=== PATIENT | female | born 1955 | race Caucasian/White ===

== ENCOUNTER → 2019-02-23 | Outpatient (CLI) | payer MEDICARE, BC ==
--- NOTE | 2019-02-23 09:44 | US ---
EXAMINATION TYPE: US venous doppler duplex LE LT DATE OF EXAM: 02/23/2019 9:36 AM COMPARISON: US 2013. CLINICAL HISTORY: R60.0 edema of lower extremity. Left leg swelling/ no known prior DVT/ not on blood thinners SIDE PERFORMED: Left TECHNIQUE: The lower extremity deep venous system is examined utilizing real time linear array sonog carlotta with graded compression, doppler sonography and color-flow sonography. VESSELS IMAGED: External Iliac Vein (EIV) Common Femoral Vein Deep Femoral Vein Greater Saphenous Vein * Femoral Vein Popliteal Vein Small Saphenous Vein * Proximal Calf Veins (* superficial vessels) Left Leg: Negative for DVT Results called to Evelia at Dr's office at time of exam Grayscale, color doppler, spectral doppler imaging performed of the deep veins of the left lower extr emity. There is normal flow, compressibility, vascular waveforms. IMPRESSION: No ultrasound evidence for acute DVT in the left lower extremity.
== END | disposition home or self-care (01) ==
LOC: RADUSWWP 09:15
PROVIDERS: ATTEND Family Medicine
DX: R60.0 Localized edema (principal)

== ENCOUNTER 2021-05-30 15:29 | Inpatient (IN) | payer BC, MEDICARE ==
[2021-05-30] MEDS ORDERED: ACETAMINOPHEN TAB 325 MG TAB PO PRN (17:24)
[2021-05-30 17:48] LABS: Basophils % (A) 0 %; Eosinophils % (A) 0 %; HCT 38.1 % (34.0-46.0); Lymphocytes # (A) 1.1 k/uL (1.0-4.8); Lymphocytes % (A) 11 %; MCH 30.6 pg (25.0-35.0); MCHC 34.2 g/dL (31.0-37.0); MCV 89.6 fL (80.0-100.0); Mean Platelet Volume 7.6; Monocytes # (A) 0.4 k/uL (0-1.0); Monocytes % (A) 4 %; Neutrophils # (A) 7.7 k/uL (1.3-7.7); Neutrophils % (A) 83 %; Platelet Count 209 k/uL (150-450); RBC 4.25 m/uL (3.80-5.40); RDW 12.5 % (11.5-15.5); WBC 9.3 k/uL (3.8-10.6)
[2021-05-30 17:59] LABS: ALT 45 U/L (4-34); AST 51 U/L (14-36); African American GFR (CKD) >90 (>60 ml/min/1.73 sqM); Albumin 3.2 g/dL (3.5-5.0); Alkaline Phosphatase 65 U/L (38-126); Anion Gap 10 mmol/L; Blood Urea Nitrogen 25 mg/dL (7-17); Calcium 8.6 mg/dL (8.4-10.2); Carbon Dioxide 22 mmol/L (22-30); Chloride 100 mmol/L (98-107); Glucose 176 mg/dL (74-99); LDH 657 U/L (313-618); Magnesium 2.2 mg/dL (1.6-2.3); Non-African American GFR(CKD) 80 (>60 ml/min/1.73 sqM); Potassium 3.6 mmol/L (3.5-5.1); Sodium 132 mmol/L (137-145); Total Bilirubin 0.3 mg/dL (0.2-1.3); Total Protein 6.3 g/dL (6.3-8.2)
[2021-05-30 18:13] LABS: C Reactive Protein 22.5 mg/dL (<1.0); INR 0.9 (<1.2); Partial Thromboplastin Time 27.1 sec (22.0-30.0); Prothrombin Time 10.1 sec (9.0-12.0)
--- NOTE | 2021-05-30 19:11 | XR ---
EXAMINATION TYPE: XR chest 1V portable DATE OF EXAM: 05/30/2021 COMPARISON: NONE HISTORY: Short of breath TECHNIQUE: Single view FINDINGS: There is pulmonary interstitial and mild airspace edema. Heart is within normal limits of s ize. There is no definite pleural effusion. Bony thorax is intact. IMPRESSION: Pulmonary patchy interstitial and airspace pneumonia. Heart failure not excluded.
--- NOTE | 2021-05-30 19:18 | ED ---
General Adult HPI - General Chief complaint: Recheck/Abnormal Lab/Rx Stated complaint: covid+/wants infusion Time Seen by Provider: 05/30/21 16:57 Source: patient, RN notes reviewed, old records reviewed Mode of arrival: ambulatory Limitations: no limitations - History of Present Illness Initial comments: I evaluated the patient when she was placed in a room.Patient is a 66-year-old female with past medical history remarkable for MS, legally blind, hypertension who presents to the emergency Department Covid-positive with shortness of breath. Patient was found to be 80% on room air in the room. She states she has had symptoms since the which is 8 days ago. She has progressively gotten worse. She does endorse a cough. She was given the first dose of vaccine but did not complete it as she had an anaphylactic reaction. She denies any chest pain, lower extremity swelling, history of blood clots. Denies any abdominal pain but does endorse some reduced appetite. She is no other acute complaints at this time. She was surprised when she found out that her oxygen level is low I discussed with her admission. She was in agreement. She is no other acute complaints at this time. - Related Data Home Medications Medication Instructions Recorded Confirmed Latanoprost Ophth [Xalatan 0.005%] 1 drops BOTH EYES HS 01/06/16 05/30/21 Losartan Potassium [Cozaar] 50 mg PO BID 01/06/16 05/30/21 amLODIPine [Norvasc] 5 mg PO BID 01/06/16 05/30/21 Aspirin EC [Ecotrin Low Dose] 81 mg PO DAILY 05/30/21 05/30/21 Cholecalciferol [Vitamin D3 (25 75 mcg PO DAILY 05/30/21 05/30/21 Mcg = 1000 Iu)] Dalfampridine [Dalfampridine ER] 10 mg PO Q12H 05/30/21 05/30/21 Dexamethasone 6 mg PO DAILY 05/30/21 05/30/21 Loratadine 10 mg PO DAILY 05/30/21 05/30/21 Loratadine/Pseudoephedrine 1 tab PO DAILY PRN 05/30/21 05/30/21 [Loratadine-D 24Hr Tablet] Meclizine [Antivert] 12.5 mg PO AC-TID PRN 05/30/21 05/30/21 Mometasone Furoate [Elocon] 1 applic TOPICAL BID 05/30/21 05/30/21 Nystatin 100,000Unit/gm Cream 1 applic TOPICAL BID 05/30/21 05/30/21 [Mycostatin Cream] [place]-3 Fatty Acids [[place]-3] 1,000 mg PO DAILY 05/30/21 05/30/21 Potassium Iodide 32.5mg 32.5 mg PO DAILY 05/30/21 05/30/21 Timolol 0.5% Ophth Soln [Timoptic 1 drop BOTH EYES BID 05/30/21 05/30/21 0.5% Ophth Soln] Triamterene-Hctz 37.5-25Mg 1 cap PO DAILY 05/30/21 05/30/21 [Dyazide 37.5-25 Capsule] Vitamin B Complex 1 cap PO DAILY 05/30/21 05/30/21 modafiniL [Provigil] 200 mg PO DAILY 05/30/21 05/30/21 Allergies Allergy/AdvReac Type Severity Reaction Status Date / Time penicillinase Allergy Rash/Hives Verified 05/30/21 18:15 Penicillins Allergy Rash/Hives Verified 05/30/21 18:15 Review of Systems ROS Statement: Those systems with pertinent positive or pertinent negative responses have been documented in the HPI. Review of Systems: CONST: Denies fever EYES: Denies blurry vision ENT: Endorses rhinorrhea C/V: Denies Chest pain RESP: Endorses shortness of breath GI: Denies abdominal pain : Denies dysuria SKIN: Denies rash. MSK: Denies joint pain. NEURO: Denies headache ROS Other: All systems not noted in ROS Statement are negative. Past Medical History Past Medical History: Hypertension, Sleep Apnea/CPAP/BIPAP Additional Past Medical History / Comment(s): ms, apnea, leagally blind, glaucom a Past Surgical History: Hysterectomy Past Psychological History: No Psychological Hx Reported General Exam - General Exam Comments Initial Comments: General: Appears in mild respiratory distress. HEAD: Normal with no signs of head trauma. EYES: Legally blind, can see shapes which is her baseline. ENT: Hearing grossly intact, normal oropharynx. RESPIRATORY: Coarse breath sounds bilaterally. Hypoxic on room air. Mildly increased work of breathing. C/V: Tachycardia with a regular rhythm. S1 and S2 auscultated. Peripheral pulses 2+ and intact throughout. No peripheral edema. ABD: Abd is soft, nontender, nondistended EXT: Normal range of motion, no obvious deformity SKIN: No rashes or lesions observed on exposed skin. NEURO: Alert and oriented 4. No focal deficits. Limitations: no limitations Course Vital Signs 05/30/21 05/30/21 16:50 17:48 Temperature 99 F Pulse Rate 103 H 94 Respiratory 20 20 Rate Blood Pressure 111/71 124/73 O2 Sat by Pulse 89 L 90 L Oximetry Medical Decision Making - Medical Decision Making Based on the patient's presentation and physical exam, she is experiencing hypoxic respiratory failure secondary to COVID-19 pneumonia. I discussed with her that she requires admission she was in agreement this plan. She will be given Decadron, albuterol, based on oxygen. Saturations improved following 4 L oxygen administration. Covid labs will be obtained including cardiac workup. She was in agreement with this plan. EKG shows no signs of acute ischemia. Lavatory studies were remarkable for an elevated d-dimer of 1.55. She is a mild hyponatremia of 132. Lactic acid is very mildly elevated 2.3 which may be secondary to mild dehydration. Patient is tolerant by mouth intake at this time and she'll be given fluid hydration. LDH is mildly elevated to 657, troponin is negative, and CRP is elevated to 22. On reevaluation, patient is feeling improved. Respiratory distress is reduced. Patient is saturating 90% on 4 L nasal cannula. I discussed with her the results of laboratory studies. I would like to obtain a CT PE throughout the possibility of pulmonary embolism with her elevated d-dimer. She was in agreement this plan. CT PE showed no signs of a pulmonary embolus and. There is a substernal goiter present. I informed the patient results of her imaging. At this time she'll be admitted to the hospital. Pulmonology and infectious disease were consulted to evaluate the patient in the morning. I spoke with the admitting team under Dr. Dunbar who accepted the patient. Patient was admitted to a telemetry bed in serious condition. - Lab Data Result diagrams: 05/30/21 17:33 05/30/21 17:33 Lab Results 05/30/21 05/30/21 05/30/21 Range/Units 17:33 17:33 17:33 WBC 9.3 (3.8-10.6) k/uL RBC 4.25 (3.80-5.40) m/uL Hgb 13.0 (11.4-16.0) gm/dL Hct 38.1 (34.0-46.0) % MCV 89.6 (80.0-100.0) fL MCH 30.6 (25.0-35.0) pg MCHC 34.2 (31.0-37.0) g/dL RDW 12.5 (11.5-15.5) % Plt Count 209 (150-450) k/uL MPV 7.6 Neutrophils % 83 % Lymphocytes % 11 % Monocytes % 4 % Eosinophils % 0 % Basophils % 0 % Neutrophils # 7.7 (1.3-7.7) k/uL Lymphocytes # 1.1 (1.0-4.8) k/uL Monocytes # 0.4 (0-1.0) k/uL Eosinophils # 0.0 (0-0.7) k/uL Basophils # 0.0 (0-0.2) k/uL PT 10.1 (9.0-12.0) sec INR 0.9 (<1.2) APTT 27.1 (22.0-30.0) sec D-Dimer 1.55 H (<0.60) mg/L FEU Sodium 132 L (137-145) mmol/L Potassium 3.6 (3.5-5.1) mmol/L Chloride 100 (98-107) mmol/L Carbon Dioxide 22 (22-30) mmol/L Anion Gap 10 mmol/L BUN 25 H (7-17) mg/dL Creatinine 0.79 (0.52-1.04) mg/dL Est GFR (CKD-EPI)AfAm >90 (>60 ml/min/1.73 sqM) Est GFR (CKD-EPI)NonAf 80 (>60 ml/min/1.73 sqM) Glucose 176 H (74-99) mg/dL Lactic Ac Sepsis Rflx Plasma Lactic Acid Bryon (0.7-2.0) mmol/L Calcium 8.6 (8.4-10.2) mg/dL Magnesium 2.2 (1.6-2.3) mg/dL Total Bilirubin 0.3 (0.2-1.3) mg/dL AST 51 H (14-36) U/L ALT 45 H (4-34) U/L Alkaline Phosphatase 65 (38-126) U/L Lactate Dehydrogenase 657 H (313-618) U/L Troponin I (0.000-0.034) ng/mL C-Reactive Protein 22.5 H (<1.0) mg/dL Total Protein 6.3 (6.3-8.2) g/dL Albumin 3.2 L (3.5-5.0) g/dL Coronavirus (PCR) (Not Detectd) 05/30/21 05/30/21 05/30/21 Range/Units 17:33 17:33 17:36 WBC (3.8-10.6) k/uL RBC (3.80-5.40) m/uL Hgb (11.4-16.0) gm/dL Hct (34.0-46.0) % MCV (80.0-100.0) fL MCH (25.0-35.0) pg MCHC (31.0-37.0) g/dL RDW (11.5-15.5) % Plt Count (150-450) k/uL MPV Neutrophils % % Lymphocytes % % Monocytes % % Eosinophils % % Basophils % % Neutrophils # (1.3-7.7) k/uL Lymphocytes # (1.0-4.8) k/uL Monocytes # (0-1.0) k/uL Eosinophils # (0-0.7) k/uL Basophils # (0-0.2) k/uL PT (9.0-12.0) sec INR (<1.2) APTT (22.0-30.0) sec D-Dimer (<0.60) mg/L FEU Sodium (137-145) mmol/L Potassium (3.5-5.1) mmol/L Chloride (98-107) mmol/L Carbon Dioxide (22-30) mmol/L Anion Gap mmol/L BUN (7-17) mg/dL Creatinine (0.52-1.04) mg/dL Est GFR (CKD-EPI)AfAm (>60 ml/min/1.73 sqM) Est GFR (CKD-EPI)NonAf (>60 ml/min/1.73 sqM) Glucose (74-99) mg/dL Lactic Ac Sepsis Rflx Plasma Lactic Acid Bryon 2.3 H* (0.7-2.0) mmol/L Calcium (8.4-10.2) mg/dL Magnesium (1.6-2.3) mg/dL Total Bilirubin (0.2-1.3) mg/dL AST (14-36) U/L ALT (4-34) U/L Alkaline Phosphatase (38-126) U/L Lactate Dehydrogenase (313-618) U/L Troponin I <0.012 (0.000-0.034) ng/mL C-Reactive Protein (<1.0) mg/dL Total Protein (6.3-8.2) g/dL Albumin (3.5-5.0) g/dL Coronavirus (PCR) Detected A (Not Detectd) 05/30/21 Range/Units 18:00 WBC (3.8-10.6) k/uL RBC (3.80-5.40) m/uL Hgb (11.4-16.0) gm/dL Hct (34.0-46.0) % MCV (80.0-100.0) fL MCH (25.0-35.0) pg MCHC (31.0-37.0) g/dL RDW (11.5-15.5) % Plt Count (150-450) k/uL MPV Neutrophils % % Lymphocytes % % Monocytes % % Eosinophils % % Basophils % % Neutrophils # (1.3-7.7) k/uL Lymphocytes # (1.0-4.8) k/uL Monocytes # (0-1.0) k/uL Eosinophils # (0-0.7) k/uL Basophils # (0-0.2) k/uL PT (9.0-12.0) sec INR (<1.2) APTT (22.0-30.0) sec D-Dimer (<0.60) mg/L FEU Sodium (137-145) mmol/L Potassium (3.5-5.1) mmol/L Chloride (98-107) mmol/L Carbon Dioxide (22-30) mmol/L Anion Gap mmol/L BUN (7-17) mg/dL Creatinine (0.52-1.04) mg/dL Est GFR (CKD-EPI)AfAm (>60 ml/min/1.73 sqM) Est GFR (CKD-EPI)NonAf (>60 ml/min/1.73 sqM) Glucose (74-99) mg/dL Lactic Ac Sepsis Rflx Y Plasma Lactic Acid Bryon (0.7-2.0) mmol/L Calcium (8.4-10.2) mg/dL Magnesium (1.6-2.3) mg/dL Total Bilirubin (0.2-1.3) mg/dL AST (14-36) U/L ALT (4-34) U/L Alkaline Phosphatase (38-126) U/L Lactate Dehydrogenase (313-618) U/L Troponin I (0.000-0.034) ng/mL C-Reactive Protein (<1.0) mg/dL Total Protein (6.3-8.2) g/dL Albumin (3.5-5.0) g/dL Coronavirus (PCR) (Not Detectd) - EKG Data -: EKG Interpreted by Me EKG Comments: 12-lead Electrocardiogram Interpretation Note EKG was reviewed and interpreted by myself. 12-lead ECG performed at 1803 is interpreted by me as revealing normal sinus rhythm at a rate of 88 beats per minute. [place] is normal. PA intervals 198 ms, QRS duration is 84 ms, QTc is 438 ms.. There were no ST or T wave abnormalities to suggest myocardial ischemia or injury. R wave progression across the precordium was satisfactory. By my interpretation this EKG is non-diagnostic for acute ischemia. Disposition Clinical Impression: Acute respiratory failure with hypoxia, Pneumonia due to COVID-19 virus Disposition: ADMITTED IP TO THIS HOSP Condition: Serious
--- NOTE | 2021-05-30 20:37 | CT ---
EXAMINATION TYPE: CT chest angio for PE DATE OF EXAM: 05/30/2021 COMPARISON: None HISTORY: Elevated d-dimer, covid. CT DLP: 396.8 mGycm Automated exposure control for dose reduction was used. CONTRAST: Performed with IV Contrast, patient injected with 100 mL of Isovue 370. There are 3-D post processed images. There is patchy bilateral interstitial and airspace infiltrates in the lung perez bilaterally. There is enlarged thyroid gland with extension into the retrosternal region. Thoracic aorta is intact. The re is no aneurysm or dissection. There is no mediastinal adenopathy. There are no hilar masses. There is no evidence of filling defect in the pulmonary arteries. There is some mild pleural thickening at the posterior lung bases. Sternum is intact. The thoracic spine is intact. There is no compression fracture. IMPRESSION: No evidence of pulmonary embolism. Moderate patchy bilateral pneumonia. Large retrosternal goiter.
[2021-05-30] MEDS ORDERED: NALOXONE 0.4 MG/ML 1 ML VIAL IV PRN (20:57)
[2021-05-30] MEDS: DEXAMETHASONE SOD PHOSPHATE 10 MG/ML 1 ML VIAL IVP SCH (23:54)
[2021-05-30] MEDS: ENOXAPARIN 40 MG/0.4 ML SYRINGE SQ SCH (23:57)
[2021-05-31] MEDS: ALBUTEROL HFA INHALER INHALATION PRN ×2 (07:37→11:57)
[2021-05-31] MEDS: ENOXAPARIN 40 MG/0.4 ML SYRINGE SQ SCH (10:08)
[2021-05-31] MEDS: DEXAMETHASONE SOD PHOSPHATE 10 MG/ML 1 ML VIAL IVP SCH (10:29)
--- NOTE | 2021-05-31 11:54 | P.CNPUL ---
History of Present Illness Consult date: 05/31/21 Requesting physician: Yanique Dunbar Reason for consult: dyspnea, abnormal CXR/CT Chief complaint: Shortness of breath, cough, congestion History of present illness: This is a pleasant 66-year-old female patient who follows with Dr. Vazquez as her primary care provider. She has a history of hypertension, obstructive sleep apnea utilizing CPAP in the outpatient setting, legally blind, multiple s clerosis, obesity. She presented to the emergency room yesterday with complaints of increasing shortness of breath cough and congestion. Her O2 saturation was 80% on room air. Her symptoms started 8 days prior to her arrival. She did receive a Pfizer vaccine back in December but had ALLERGIC reactio n and did not receive a second one. Her is also positive but still at home still. X-ray reveals bilateral patchy airspace disease. CT angiogram ruled out pulmonary embolism. There is moderate patchy bilateral pneumonia. Large retrosternal goiter. Count 9.3. Hemoglobin 13.0. D-dimer 1.55. Sodium 132. Potassium 3.6. Creatinine 0.79. Glucose 176. Ferritin 778. AST 51. ALT 45. LDH 657. C-reactive protein 22.5. Pro-calcitonin 0.09. Coronary virus by PCR positive. He is seen today in consultation in the emergency room. She is currently resting fairly comfortably in bed. She did utilize her home CPAP through the night. She's been on 5 L nasal cannula to maintain O2 sa turation in the low 90s. His been afebrile. Hemodynamically stable. Been initiated on Decadron, Lovenox, vitamin supplements. Outside the window for Remdesivir. Review of Systems REVIEW OF SYSTEMS: CONSTITUTIONAL: Denies any recent significant weight loss or weight gain. EYES: Denies change in vision. EARS, NOSE, MOUTH, THROAT: Denies headaches, denies sore throat. CARDIOVASCULAR: Denies chest pain, palpitations or syncopal episodes. RESPIRATORY: Positive for shortness of breath, cough, congestion no hemoptysis. GASTROINTESTINAL: Denies change in appetite, denies abdominal pain GENITOURINARY: Denies hematuria, denies infections. MUSKULOSKELETAL: Denies pain, denies swelling. INTEGUMENTARY: Denies rash, denies eczema. NEUROLOGICAL: Denies recent memory loss, no recent seizure activity. PSYCHIATRIC: Denies anxiety, denies depression. HEMATOLOGIC/LYMPHATIC: Denies anemia, denies enlarged lymph nodes. Past Medical History Past Medical History: Hypertension, Sleep Apnea/CPAP/BIPAP Additional Past Medical History / Comment(s): ms, apnea, leagally blind, glaucoma History of Any Multi-Drug Resistant Organisms: None Reported Past Surgical History: Hysterectomy Additional Past Surgical History / Comment(s): left tibia surgery, bilateral wrist surgery Past Psychological History: No Psychological Hx Reported Smoking Status: Never smoker Medications and Allergies Home Medications Medication Instructions Recorded Confirmed Type Latanoprost Ophth [Xalatan 0.005%] 1 drops BOTH EYES HS 01/06/16 05/30/21 History Losartan Potassium [Cozaar] 50 mg PO BID 01/06/16 05/30/21 History amLODIPine [Norvasc] 5 mg PO BID 01/06/16 05/30/21 History Aspirin EC [Ecotrin Low Dose] 81 mg PO DAILY 05/30/21 05/30/21 History Cholecalciferol [Vitamin D3 (25 75 mcg PO DAILY 05/30/21 05/30/21 History Mcg = 1000 Iu)] Dalfampridine [Dalfampridine ER] 10 mg PO Q12H 05/30/21 05/30/21 History Dexamethasone 6 mg PO DAILY 05/30/21 05/30/21 History Loratadine 10 mg PO DAILY 05/30/21 05/30/21 History Loratadine/Pseudoephedrine 1 tab PO DAILY PRN 05/30/21 05/30/21 History [Loratadine-D 24Hr Tablet] Meclizine [Antivert] 12.5 mg PO AC-TID PRN 05/30/21 05/30/21 History Mometasone Furoate [Elocon] 1 applic TOPICAL BID 05/30/21 05/30/21 History Nystatin 100,000Unit/gm Cream 1 applic TOPICAL BID 05/30/21 05/30/21 History [Mycostatin Cream] [place]-3 Fatty Acids [[place]-3] 1,000 mg PO DAILY 05/30/21 05/30/21 History Potassium Iodide 32.5mg 32.5 mg PO DAILY 05/30/21 05/30/21 History Timolol 0.5% Ophth Soln [Timoptic 1 drop BOTH EYES BID 05/30/21 05/30/21 History 0.5% Ophth Soln] Triamterene-Hctz 37.5-25Mg 1 cap PO DAILY 05/30/21 05/30/21 History [Dyazide 37.5-25 Capsule] Vitamin B Complex 1 cap PO DAILY 05/30/21 05/30/21 History modafiniL [Provigil] 200 mg PO DAILY 05/30/21 05/30/21 History Allergies Allergy/AdvReac Type Severity Reaction Status Date / Time penicillinase Allergy Rash/Hives Verified 05/30/21 18:15 Penicillins Allergy Rash/Hives Verified 05/30/21 18:15 Physical Exam Vitals: Vital Signs Temp Pulse Pulse Resp BP BP Pulse Ox 05/31/21 10:20 87 116/52 97 05/31/21 02:00 98 F 95 18 125/70 92 L 05/30/21 23:50 98.1 F 97 20 114/67 90 L 05/30/21 21:10 94 20 127/70 92 L 05/30/21 17:48 94 20 124/73 90 L 05/30/21 17:24 92 L 05/30/21 16:50 99 F 103 H 20 111/71 89 L Intake and Output 05/30/21 05/31/21 05/31/21 22:59 06:59 14:59 Other: Voiding Method Toilet Toilet # Voids 1 1 Weight 99.79 kg 99.79 kg GENERAL EXAM: Alert, wasn't 66-year-old female patient, obese, on 5 L nasal cannula, fairly comfortable in no apparent distress. HEAD: Normocephalic. EYES: Normal reaction of pupils, equal size. NOSE: Clear with pink turbinates. THROAT: No erythema or exudates. NECK: No masses, no JVD. CHEST: No chest wall deformity. LUNGS: Equal air entry with crackles in the bilateral bases. CVS: S1 and S2 normal with no audible murmur, regular rhythm. ABDOMEN: No hepatosplenomegaly, normal bowel sounds, no guarding or rigidity. SPINE: No scoliosis or deformity SKIN: No rashes CENTRAL NERVOUS SYSTEM: No focal deficits, tone is normal in all 4 extremities. EXTREMITIES: There is no peripheral edema. No clubbing, no cyanosis. Peripheral pulses are intact. Results - Laboratory Findings CBC and BMP: 05/30/21 17:33 05/30/21 17:33 PT/INR, D-dimer PT 10.1 sec (9.0-12.0) 05/30/21 17:33 INR 0.9 (<1.2) 05/30/21 17:33 D-Dimer 1.55 mg/L FEU (<0.60) H 05/30/21 17:33 Abnormal lab findings: Abnormal Labs 05/30/21 05/30/21 05/30/21 17:33 17:33 17:33 D-Dimer 1.55 H Sodium 132 L BUN 25 H Glucose 176 H Plasma Lactic Acid Bryon 2.3 H* Ferritin 778.0 H AST 51 H ALT 45 H Lactate Dehydrogenase 657 H C-Reactive Protein 22.5 H Albumin 3.2 L Coronavirus (PCR) 05/30/21 17:36 D-Dimer Sodium BUN Glucose Plasma Lactic Acid Bryon Ferritin AST ALT Lactate Dehydrogenase C-Reactive Protein Albumin Coronavirus (PCR) Detected A - Diagnostic Findings Chest x-ray: image reviewed CT scan - chest: image reviewed Assessment and Plan Assessment: 1 Acute hypoxemic respiratory failure secondary to acute COVID-19 pneumonia. The patient received 1 size or shot in December 2020 and had ALLERGIC reaction did not receive a second dose. Outside the window for Remdesivir. 2 Elevated inflammatory markers secondary to above 3 Multiple sclerosis 4 Hypertension 5 Obstructive sleep apnea on CPAP 6 Legally blind 7 Obesity Plan: The patient was seen and evaluated by Dr. Taylor. Chest x-ray, CAT scans and labs reviewed Continue Lovenox, Decadron, vitamin supplements Outside the window for Remdesivir Currently on 5 L nasal cannula Titrate the FiO2 as tolerated Follow-up chest x-ray and inflammatory markers in the a.m. We will continue to follow and make further recommendations based on her clinical status I, the cosigning physician, performed a history & physical examination of the patient. Lungs sounds with crackles in the bilateral bases. Maintaining O2 saturations in the 90s on 5 L/m per nasal cannula. I discussed the assessment and plan of care with my nurse practitioner, Cadence Holden. I attest to the above consultation as dictated by her. Time with Patient: Greater than 30
[2021-05-31] MEDS ORDERED: DALFAMPRIDINE 10 MG PO SCH (12:15)
--- NOTE | 2021-05-31 12:21 | P.HPIM ---
History of Present Illness H&P Date: 05/31/21 Chief Complaint: dyspnea 66-year-old woman with medical history of hypertension, multiple sclerosis, glaucoma presented with dyspnea. Patient complains of having approximately 9 days of symptoms of chills, fatigue, worsening shortness of breath. She was diagnosed with Covid 19 upon arrival. Her has COVID-19 at home. Patient received 1 dose of the Pfizer vaccine, however, had an anaphylactic reaction to this and never received a second dose, this was back in December. Patient reports that her is vaccinated as well. Patient is afebrile, 116/52, 97% on CPAP of 4 L; prior to this, desaturated to the mid 80s on room air. CBC is unremarkable, chemistry is unremarkable, liver function tests demonstrated elevated liver enzymes, ferritin is elevated to 778, CRP is elevated to 22.5, LDH is elevated to 657. Chest x-ray demonstrates patchy airspace opacities bilaterally. EKG appears to be in normal sinus rhythm. Review of Systems All Systems reviewed and pertinent positives and negatives noted in HPI, all other symptoms are negative Past Medical History Past Medical History: Hypertension, Sleep Apnea/CPAP/BIPAP Additional Past Medical History / Comment(s): ms, apnea, leagally blind, glaucoma History of Any Multi-Drug Resistant Organisms: None Reported Past Surgical History: Hysterectomy Additional Past Surgical History / Comment(s): left tibia surgery, bilateral wrist surgery Past Psychological History: No Psychological Hx Reported Smoking Status: Never smoker Medications and Allergies Home Medications Medication Instructions Recorded Confirmed Type Latanoprost Ophth [Xalatan 0.005%] 1 drops BOTH EYES HS 01/06/16 05/30/21 History Losartan Potassium [Cozaar] 50 mg PO BID 01/06/16 05/30/21 History amLODIPine [Norvasc] 5 mg PO BID 01/06/16 05/30/21 History Aspirin EC [Ecotrin Low Dose] 81 mg PO DAILY 05/30/21 05/30/21 History Cholecalciferol [Vitamin D3 (25 75 mcg PO DAILY 05/30/21 05/30/21 History Mcg = 1000 Iu)] Dalfampridine [Dalfampridine ER] 10 mg PO Q12H 05/30/21 05/30/21 History Dexamethasone 6 mg PO DAILY 05/30/21 05/30/21 History Loratadine 10 mg PO DAILY 05/30/21 05/30/21 History Loratadine/Pseudoephedrine 1 tab PO DAILY PRN 05/30/21 05/30/21 History [Loratadine-D 24Hr Tablet] Meclizine [Antivert] 12.5 mg PO AC-TID PRN 05/30/21 05/30/21 History Mometasone Furoate [Elocon] 1 applic TOPICAL BID 05/30/21 05/30/21 History Nystatin 100,000Unit/gm Cream 1 applic TOPICAL BID 05/30/21 05/30/21 History [Mycostatin Cream] [place]-3 Fatty Acids [[place]-3] 1,000 mg PO DAILY 05/30/21 05/30/21 History Potassium Iodide 32.5mg 32.5 mg PO DAILY 05/30/21 05/30/21 History Timolol 0.5% Ophth Soln [Timoptic 1 drop BOTH EYES BID 05/30/21 05/30/21 History 0.5% Ophth Soln] Triamterene-Hctz 37.5-25Mg 1 cap PO DAILY 05/30/21 05/30/21 History [Dyazide 37.5-25 Capsule] Vitamin B Complex 1 cap PO DAILY 05/30/21 05/30/21 History modafiniL [Provigil] 200 mg PO DAILY 05/30/21 05/30/21 History Allergies Allergy/AdvReac Type Severity Reaction Status Date / Time penicillinase Allergy Rash/Hives Verified 05/30/21 18:15 Penicillins Allergy Rash/Hives Verified 05/30/21 18:15 Physical Exam Osteopathic Statement: *. No significant issues noted on an osteopathic structural exam other than those noted in the History and Physical/Consult. Vitals: Vital Signs Temp Pulse Pulse Resp BP BP Pulse Ox 05/31/21 10:20 87 116/52 97 05/31/21 02:00 98 F 95 18 125/70 92 L 05/30/21 23:50 98.1 F 97 20 114/67 90 L 05/30/21 21:10 94 20 127/70 92 L 05/30/21 17:48 94 20 124/73 90 L 05/30/21 17:24 92 L 05/30/21 16:50 99 F 103 H 20 111/71 89 L Intake and Output 05/30/21 05/31/21 05/31/21 22:59 06:59 14:59 Other: Voiding Method Toilet Toilet # Voids 1 1 Weight 99.79 kg 99.79 kg Gen: awake, alert HEENT: normocephalic, atraumatic, good hearing acuity, moist mucous membranes Resp: good air exchange, breathing comfortably with no accessory muscle use CVS: good distal perfusion x 4, GI: soft, NTTP, ND : no SPT, no CVAT, san catheter not present MSK: no pitting edema, no clubbing Neuro: non-focal, moving all extremities Psych: cooperative, euthymic mood Results CBC & Chem 7: 05/30/21 17:33 05/30/21 17:33 Labs: Abnormal Lab Results - Last 24 Hours (Table) 05/30/21 05/30/21 05/30/21 Range/Units 17:33 17:33 17:33 D-Dimer 1.55 H (<0.60) mg/L FEU Sodium 132 L (137-145) mmol/L BUN 25 H (7-17) mg/dL Glucose 176 H (74-99) mg/dL Plasma Lactic Acid Bryon 2.3 H* (0.7-2.0) mmol/L Ferritin 778.0 H (10.0-291.0) ng/mL AST 51 H (14-36) U/L ALT 45 H (4-34) U/L Lactate Dehydrogenase 657 H (313-618) U/L C-Reactive Protein 22.5 H (<1.0) mg/dL Albumin 3.2 L (3.5-5.0) g/dL Coronavirus (PCR) (Not Detectd) 05/30/21 Range/Units 17:36 D-Dimer (<0.60) mg/L FEU Sodium (137-145) mmol/L BUN (7-17) mg/dL Glucose (74-99) mg/dL Plasma Lactic Acid Bryon (0.7-2.0) mmol/L Ferritin (10.0-291.0) ng/mL AST (14-36) U/L ALT (4-34) U/L Lactate Dehydrogenase (313-618) U/L C-Reactive Protein (<1.0) mg/dL Albumin (3.5-5.0) g/dL Coronavirus (PCR) Detected A (Not Detectd) Thrombosis Risk Factor Assmnt - Choose All That Apply Each Risk Factor Represents 2 Points: Age 61-74 years Thrombosis Risk Factor Assessment Total Risk Factor Score: 2 Thrombosis Risk Factor Assessment Level: Low Risk Assessment and Plan Assessment: ARDS secondary to Covid 19 Acute hypoxemic respiratory failure -Admit to inpatient, telemetry -Pulmonary consult -Dexamethasone -Outside of window for Remdesivir -Vitamin C, D, zinc Multiple sclerosis Hypertension Glaucoma -Home medications reviewed and reconciled Patient is full code Enoxaparin for DVT prophylaxis
[2021-05-31] MEDS: NON FORMULARY DRUG (Omega-3 Fatty Acids [Omega-3] 1,000 MG Capsule) PO SCH (15:25)
[2021-05-31] MEDS: POTASSIUM IODIDE PO SCH (15:26)
[2021-05-31] MEDS: TRIAMTERENE-HCTZ 37.5-25MG 1 EACH CAP PO SCH (15:27)
[2021-05-31] MEDS: amLODIPine 5 MG TAB PO SCH ×2 (15:27→21:48)
[2021-05-31] MEDS: LOSARTAN 50 MG TAB PO SCH (21:48)
[2021-05-31] MEDS: TIMOLOL 0.5% OPHTH DROPS 5 ML BTL BOTH EYES SCH (23:26)
[2021-05-31] MEDS: LATANOPROST 0.005% OPHTH DROPS 2.5 ML BTL BOTH EYES SCH (23:26)
[2021-06-01] MEDS: [UNRECOGNIZED DRUG - REMARK] PO SCH ×3 (01:42→21:59)
[2021-06-01] MEDS: ALBUTEROL HFA INHALER INHALATION PRN ×2 (07:34→20:51)
--- NOTE | 2021-06-01 08:36 | XR ---
EXAMINATION TYPE: XR chest 1V portable DATE OF EXAM: 06/01/2021 COMPARISON: Chest x-ray 05/30/2021 HISTORY: Covid pneumonia TECHNIQUE: Single frontal view of the chest is obtained. FINDINGS: Patchy airspace disease is present bilaterally, there is some prominence interstitium. No evident pneumothorax or pleural effusion. Cardiac mediastinal silhouette is stable. There are overlyi ng artifacts. IMPRESSION: Correlate for pneumonia.
[2021-06-01 09:17] LABS: C Reactive Protein 7.9 mg/dL (0.00-0.80)
[2021-06-01] MEDS: CHOLECALCIFEROL 25 MCG (1000 IU) TABLET PO SCH ×2 (09:42→09:44)
[2021-06-01] MEDS: ENOXAPARIN 40 MG/0.4 ML SYRINGE SQ SCH (09:42)
[2021-06-01] MEDS: ZINC SULFATE 220 MG CAP PO SCH (09:43)
[2021-06-01] MEDS: dexAMETHasone 2 MG TAB PO SCH (09:43)
[2021-06-01] MEDS: ASCORBIC ACID 500 MG TAB PO SCH (09:43)
[2021-06-01] MEDS: ASPIRIN 81 MG PO SCH (09:43)
[2021-06-01] MEDS: LOSARTAN 50 MG TAB PO SCH ×2 (09:43→21:51)
[2021-06-01] MEDS: amLODIPine 5 MG TAB PO SCH ×2 (09:44→21:51)
[2021-06-01] MEDS: NON FORMULARY DRUG (Vitamin B Complex [Vitamin B Complex] 1 EACH Capsule) PO SCH (09:45)
[2021-06-01] MEDS: NON FORMULARY DRUG (Omega-3 Fatty Acids [Omega-3] 1,000 MG Capsule) PO SCH (09:47)
[2021-06-01] MEDS: POTASSIUM IODIDE PO SCH (09:48)
[2021-06-01] MEDS: TIMOLOL 0.5% OPHTH DROPS 5 ML BTL BOTH EYES SCH ×2 (09:48→21:59)
--- NOTE | 2021-06-01 09:48 | P.CONS ---
History of Present Illness - Reason for Consult Consult date: 05/31/21 covid 19 pneumonia Requesting physician: Balbir Beasley - Chief Complaint shortness of breath and low O2 sats x few days - History of Present Illness History of present illness : Patient is 66-year-old female with a past medical history significant for MS hypertension legally blind presenting to the ER for evaluation of increasing shortness of breath patient symptom has been going on since May 22, 2021 and he noticed to have progressive worsening shortness of breath the patient did have a cough which is mild to moderate intensity is mostly dry in nature not bringing up any sputum. Denies any pleuritic chest pain some nausea but no vomiting no abdominal pain or diarrhea patient did have a pulse ox of 80% on room air that prompted her to come to the hospital on arrival to the ER the patient was afebrile and no fever was recorded subsequently patient did have O2 sats of 89% on room air on presentation to the hospital patient did have a normal white count with no lymphopenia D-dimer was mildly elevated did have elevated lactic acid creatinine was normal liver enzymes elevated LDH was elevated as well as CRP: PCR was positive blood cultures obtained which are currently pending patient did have a chest x-ray pulmonary patchy interstitial airspace pneumonia patient also have a CT angiogram of the chest that was negative for PE did shows moderate patchy bilateral pneumonia patient has been admitted to the hospital infectious disease was consulted for further management Review of system: CONSTITUTIONAL: Positive for weakness denies high-grade fever. EYES: No complaint. ENT: No complaint. RESPIRATORY: As per history of present illness CARDIOVASCULAR: No complaint. GENITOURINARY: No complaint. GASTROINTESTINAL: No complaint. MUSCULOSKELETAL: No complaint. INTEGUMENTARY: No complaint. PSYCHOLOGIC: No complaint. ENDOCRINE: No complaint. NEUROLOGIC: No complaint. Past medical history : Reviewed, documented below Past surgical history : Reviewed, documented below Social history: Reviewed, documented below Medications: Reviewed, as documented below EXAMINATION: Vital sigans= Reviewed and documented below GENERAL DESCRIPTION: Middle-aged female lying in bed, no distress. No tachypnea or accessory muscle of respiration use. HEENT: Shows Pallor , no scleral icterus. Oral mucous membrane is dry. NECK: Trachea central, no thyromegaly. LUNGS: Unlabored breathing. Decrease intensity of breath sounds. No wheeze or crackle. HEART: S1, S2, regular rate and rhythm. ABDOMEN: Soft, no tenderness , guarding or rigidity EXTREMITIES: No edema of feet. SKIN: No rash, no masses palpable. NEUROLOGICAL: The patient is awake, alert, oriented x3, mood and affect normal. LABS AND RADIOLOGY: Reviewed results see below Assessment : Patient is 66-year-old female with a past medical history of MS hypertension presented to hospital with increasing shortness of breath hypoxemia in this patient symptom has been going on for more than 9 days now and is currently out of the therapeutic window for remdesivir patient currently do not have any sinus symptoms suspicious for secondary bacterial pneumonia Plan: 1-patient will be treated with Lovenox Decadron zinc and ascorbic acid 2-no need for systemic antibiotic therapy 3-droplet isolation and respiratory support We will follow on clinical condition and cultures to further adjust medication if needed Thank you for this consultation we will follow the patient along with you Past Medical History Past Medical History: Hypertension, Sleep Apnea/CPAP/BIPAP Additional Past Medical History / Comment(s): ms, apnea, leagally blind, glaucoma History of Any Multi-Drug Resistant Organisms: None Reported Past Surgical History: Hysterectomy Additional Past Surgical History / Comment(s): left tibia surgery, bilateral wrist surgery Past Psychological History: No Psychological Hx Reported Smoking Status: Never smoker Medications and Allergies Home Medications Medication Instructions Recorded Confirmed Type Latanoprost Ophth [Xalatan 0.005%] 1 drops BOTH EYES HS 01/06/16 05/30/21 History Losartan Potassium [Cozaar] 50 mg PO BID 01/06/16 05/30/21 History amLODIPine [Norvasc] 5 mg PO BID 01/06/16 05/30/21 History Aspirin EC [Ecotrin Low Dose] 81 mg PO DAILY 05/30/21 05/30/21 History Cholecalciferol [Vitamin D3 (25 75 mcg PO DAILY 05/30/21 05/30/21 History Mcg = 1000 Iu)] Dalfampridine [Dalfampridine ER] 10 mg PO Q12H 05/30/21 05/30/21 History Dexamethasone 6 mg PO DAILY 05/30/21 05/30/21 History Loratadine 10 mg PO DAILY 05/30/21 05/30/21 History Loratadine/Pseudoephedrine 1 tab PO DAILY PRN 05/30/21 05/30/21 History [Loratadine-D 24Hr Tablet] Meclizine [Antivert] 12.5 mg PO AC-TID PRN 05/30/21 05/30/21 History Mometasone Furoate [Elocon] 1 applic TOPICAL BID 05/30/21 05/30/21 History Nystatin 100,000Unit/gm Cream 1 applic TOPICAL BID 05/30/21 05/30/21 History [Mycostatin Cream] [place]-3 Fatty Acids [[place]-3] 1,000 mg PO DAILY 05/30/21 05/30/21 History Potassium Iodide 32.5mg 32.5 mg PO DAILY 05/30/21 05/30/21 History Timolol 0.5% Ophth Soln [Timoptic 1 drop BOTH EYES BID 05/30/21 05/30/21 History 0.5% Ophth Soln] Triamterene-Hctz 37.5-25Mg 1 cap PO DAILY 05/30/21 05/30/21 History [Dyazide 37.5-25 Capsule] Vitamin B Complex 1 cap PO DAILY 05/30/21 05/30/21 History modafiniL [Provigil] 200 mg PO DAILY 05/30/21 05/30/21 History Allergies Allergy/AdvReac Type Severity Reaction Status Date / Time penicillinase Allergy Rash/Hives Verified 05/30/21 18:15 Penicillins Allergy Rash/Hives Verified 05/30/21 18:15 Physical Exam Vitals: Vital Signs Temp Pulse Pulse Resp BP BP Pulse Ox 05/31/21 10:20 87 116/52 97 05/31/21 02:00 98 F 95 18 125/70 92 L 05/30/21 23:50 98.1 F 97 20 114/67 90 L 05/30/21 21:10 94 20 127/70 92 L 05/30/21 17:48 94 20 124/73 90 L 05/30/21 17:24 92 L 05/30/21 16:50 99 F 103 H 20 111/71 89 L Intake and Output 05/30/21 05/31/21 05/31/21 22:59 06:59 14:59 Other: Voiding Method Toilet Toilet # Voids 1 1 Weight 99.79 kg 99.79 kg Results CBC & Chem 7: 05/30/21 17:33 05/30/21 17:33 Labs: Abnormal Lab Results - Last 24 Hours (Table) 05/30/21 05/30/21 05/30/21 Range/Units 17:33 17:33 17:33 D-Dimer 1.55 H (<0.60) mg/L FEU Sodium 132 L (137-145) mmol/L BUN 25 H (7-17) mg/dL Glucose 176 H (74-99) mg/dL Plasma Lactic Acid Bryon 2.3 H* (0.7-2.0) mmol/L Ferritin 778.0 H (10.0-291.0) ng/mL AST 51 H (14-36) U/L ALT 45 H (4-34) U/L Lactate Dehydrogenase 657 H (313-618) U/L C-Reactive Protein 22.5 H (<1.0) mg/dL Albumin 3.2 L (3.5-5.0) g/dL Coronavirus (PCR) (Not Detectd) 05/30/21 Range/Units 17:36 D-Dimer (<0.60) mg/L FEU Sodium (137-145) mmol/L BUN (7-17) mg/dL Glucose (74-99) mg/dL Plasma Lactic Acid Bryon (0.7-2.0) mmol/L Ferritin (10.0-291.0) ng/mL AST (14-36) U/L ALT (4-34) U/L Lactate Dehydrogenase (313-618) U/L C-Reactive Protein (<1.0) mg/dL Albumin (3.5-5.0) g/dL Coronavirus (PCR) Detected A (Not Detectd)
[2021-06-01] MEDS: TRIAMTERENE-HCTZ 37.5-25MG 1 EACH CAP PO SCH (09:55)
--- NOTE | 2021-06-01 11:03 | P.PN ---
Subjective Progress Note Date: 06/01/21 Patient is doing well. No further complaints of dyspnea. Inflammatory markers are improving. Objective - Vital Signs Vital signs: Vital Signs Temp 97.5 F L 06/01/21 10:14 Pulse 78 06/01/21 10:14 Resp 18 06/01/21 10:14 BP 96/58 06/01/21 10:14 Pulse Ox 96 06/01/21 10:14 Intake & Output 05/31/21 06/01/21 06/01/21 18:59 06:59 18:59 Intake Total 500 Balance 500 Weight 99.79 kg Intake: Oral 500 Other: Voiding Method Toilet Toilet Toilet # Voids 4 1 - Exam Gen: awake, alert HEENT: normocephalic, atraumatic, good hearing acuity, moist mucous membranes Resp: good air exchange, breathing comfortably with no accessory muscle use CVS: good distal perfusion x 4, GI: soft, NTTP, ND : no SPT, no CVAT, san catheter not present MSK: no pitting edema, no clubbing Neuro: non-focal, moving all extremities Psych: cooperative, euthymic mood - Labs CBC & Chem 7: 05/30/21 17:33 05/30/21 17:33 Labs: Abnormal Lab Results - Last 24 Hours (Table) 06/01/21 06/01/21 Range/Units 06:29 06:29 D-Dimer 1.34 H (<0.60) mg/L FEU C-Reactive Protein 7.90 H (0.00-0.80) mg/dL Microbiology - Last 24 Hours (Table) 05/30/21 17:48 Blood Culture - Preliminary Blood No Growth after 24 hours 05/30/21 17:48 Blood Culture - Preliminary Blood No Growth after 24 hours Assessment and Plan Assessment: ARDS secondary to Covid 19 Acute hypoxemic respiratory failure -Admit to inpatient, telemetry -Pulmonary consult -Infectious disease consulted -Dexamethasone -Outside of window for Remdesivir -Vitamin C, D, zinc Multiple sclerosis Hypertension Glaucoma -Home medications reviewed and reconciled Patient is full code Enoxaparin for DVT prophylaxis
--- NOTE | 2021-06-01 19:56 | P.PN ---
Subjective Progress Note Date: 06/01/21 Principal diagnosis: COVID-19 pneumonia This is a pleasant 66-year-old female patient who follows with Dr. Vazquez as her primary care provider. She has a history of hypertension, obstructive sleep apnea utilizing CPAP in the outpatient setting, legally blind, multiple scleros is, obesity. She presented to the emergency room yesterday with complaints of increasing shortness of breath cough and congestion. Her O2 saturation was 80% on room air. Her symptoms started 8 days prior to her arrival. She did receive a Pfizer vaccine back in December but had ALLERGIC reaction and did not receive a second one. Her is also positive but still at home still. X-ray reveals bilateral patchy airspace disease. CT angiogram ruled out pulmonary embolism. There is moderate patchy bilateral pneumonia. Large retrosternal goiter. Count 9.3. Hemoglobin 13.0. D-dimer 1.55. Sodium 132. Potassium 3.6. Creatinine 0.79. Glucose 176. Ferritin 778. AST 51. ALT 45. LDH 657. C-reactive protein 22.5. Pro-calcitonin 0.09. Coronary virus by PCR positive. He is seen today in consultation in the emergency room. She is currently resting fairly comfortably in bed. She did utilize her home CPAP through the night. She's been on 5 L nasal cannula to maintain O2 saturation in the low 90s. His been afebrile. Hemodynamically stable. Been initiated on Decadron, Lovenox, vitamin supplements. Outside the window for Remdesivir. The patient is seen today 06/01/2021 in follow-up on the regular medical floor. She is awake and alert in no acute distress. She is maintaining O2 saturations in the 90s when checked on room air. She had been initially on 5 L/m per nasal cannula. She is breathing easier today compared to yesterday. Afebrile. Hemodynamically stable. D-dimer 1.34. C-reactive protein 7.9. LDH 219. X-ray continues to show patchy airspace disease bilaterally. She is continued on Decadron, Lovenox, vitamin supplements. Objective - Vital Signs Vital signs: Vital Signs Temp 98.9 F 06/01/21 18:41 Pulse 82 06/01/21 18:41 Resp 18 06/01/21 18:41 BP 116/77 06/01/21 18:41 Pulse Ox 95 06/01/21 18:41 Intake & Output 06/01/21 06/01/21 06/02/21 06:59 18:59 06:59 Other: Voiding Method Toilet Toilet # Voids 4 - Exam GENERAL EXAM: Alert, wasn't 66-year-old female patient, obese, on room air, fairly comfortable in no apparent distress. HEAD: Normocephalic. EYES: Normal reaction of pupils, equal size. NOSE: Clear with pink turbinates. THROAT: No erythema or exudates. NECK: No masses, no JVD. CHEST: No chest wall deformity. LUNGS: Equal air entry with crackles in the bilateral bases. CVS: S1 and S2 normal with no audible murmur, regular rhythm. ABDOMEN: No hepatosplenomegaly, normal bowel sounds, no guarding or rigidity. SPINE: No scoliosis or deformity SKIN: No rashes CENTRAL NERVOUS SYSTEM: No focal deficits, tone is normal in all 4 extremities. EXTREMITIES: There is no peripheral edema. No clubbing, no cyanosis. Peripheral pulses are intact. - Labs CBC & Chem 7: 05/30/21 17:33 05/30/21 17:33 Labs: Abnormal Lab Results - Last 24 Hours (Table) 06/01/21 06/01/21 Range/Units 06:29 06:29 D-Dimer 1.34 H (<0.60) mg/L FEU C-Reactive Protein 7.90 H (0.00-0.80) mg/dL Microbiology - Last 24 Hours (Table) 05/30/21 17:48 Blood Culture - Preliminary Blood No Growth after 24 hours 05/30/21 17:48 Blood Culture - Preliminary Blood No Growth after 24 hours Assessment and Plan Assessment: 1 Acute hypoxemic respiratory failure secondary to acute COVID-19 pneumonia. The patient received 1 Pfizer shot in December 2020 and had ALLERGIC reaction did not receive a second dose. Outside the window for Remdesivir. 2 Elevated inflammatory markers secondary to above 3 Multiple sclerosis 4 Hypertension 5 Obstructive sleep apnea on CPAP 6 Legally blind 7 Obesity Plan: The patient was seen and evaluated by Dr. Taylor. Continue Lovenox, Decadron, vitamin supplements Currently on room air Possible discharge in the a.m. We will continue to follow I, the cosigning physician, performed a history & physical examination of the patient. Lungs sounds with crackles in the bilateral bases. Maintaining O2 saturations in the 90s on room air. I discussed the assessment and plan of care with my nurse practitioner, Cadence Holden. I attest to the above note as dictated by her.
[2021-06-01] MEDS: LATANOPROST 0.005% OPHTH DROPS 2.5 ML BTL BOTH EYES SCH (21:59)
[2021-06-02 02:32] VITALS: RESP 16
--- NOTE | 2021-06-02 03:23 | PN ---
PROGRESS NOTE DATE OF SERVICE: 06/01/2021 REASON FOR FOLLOWUP: COVID-19 pneumonia. INTERVAL HISTORY: The patient is afebrile. The patient is breathing more comfortably compared to yesterday. The patient denies having any chest pain. Cough is about the same. No sputum production. No abdominal pain or diarrhea. PHYSICAL EXAMINATION: Blood pressure 100/51, pulse of 78, temperature 98.6. She is 92% on room air. General description is an elderly female lying in bed in no distress. Respiratory system: Unlabored breathing, decreased intensity of breath sounds. No wheeze. Heart S1, S2. Regular rate and rhythm. Abdomen soft, no tenderness. LABS: D-dimer is 1.34. DIAGNOSTIC IMPRESSION AND PLAN: Patient with acute COVID-19 pneumonia in this patient who has shown overall clinical improvement. The patient is currently covered with dexamethasone, Lovenox, zinc and ascorbic acid along with respiratory support and monitor clinical course closely. MMODL / MICHELLEN: [id number] /
[2021-06-02 06:06] VITALS: PULSE 69
[2021-06-02] MEDS: LOSARTAN 50 MG TAB PO SCH (07:34)
[2021-06-02] MEDS: amLODIPine 5 MG TAB PO SCH (07:34)
[2021-06-02] MEDS: dexAMETHasone 2 MG TAB PO SCH (10:12)
[2021-06-02] MEDS: CHOLECALCIFEROL 25 MCG (1000 IU) TABLET PO SCH ×2 (10:13→10:15)
[2021-06-02] MEDS: ZINC SULFATE 220 MG CAP PO SCH (10:14)
[2021-06-02] MEDS: ASCORBIC ACID 500 MG TAB PO SCH (10:15)
[2021-06-02] MEDS: ASPIRIN 81 MG PO SCH (10:15)
[2021-06-02] MEDS: TRIAMTERENE-HCTZ 37.5-25MG 1 EACH CAP PO SCH (10:16)
[2021-06-02] MEDS: TIMOLOL 0.5% OPHTH DROPS 5 ML BTL BOTH EYES SCH (10:16)
[2021-06-02] MEDS: ENOXAPARIN 40 MG/0.4 ML SYRINGE SQ SCH (10:16)
[2021-06-02] MEDS: NON FORMULARY DRUG (Omega-3 Fatty Acids [Omega-3] 1,000 MG Capsule) PO SCH (10:18)
[2021-06-02] MEDS: POTASSIUM IODIDE PO SCH (10:18)
[2021-06-02] MEDS: NON FORMULARY DRUG (Vitamin B Complex [Vitamin B Complex] 1 EACH Capsule) PO SCH (10:18)
[2021-06-02 11:29] VITALS: BP 101/69; TEMP 98.1
--- NOTE | 2021-06-02 11:32 | P.DS ---
Providers Date of admission: 05/30/21 20:57 Expected date of discharge: 06/02/21 Attending physician: Yanique Dunbar MD Consults: 05/30/21 17:24 Consult Physician Stat Consulting Provider: Wang Taylor Consult Reason/Comments: covid 19 pneumonia, hypoxia Do you want consulting provider notified?: Yes 05/30/21 17:26 Consult Physician Stat Consulting Provider: Ted Norton Consult Reason/Comments: covid 19 pneumonia Do you want consulting provider notified?: Yes Primary care physician: Junior Vazquez MD Hospital Course: 66-year-old woman with medical history of hypertension, multiple sclerosis, glaucoma presented with dyspnea. ARDS secondary to Covid 19 Acute hypoxemic respiratory failure -Admitted to inpatient, telemetry. Pulmonary consulted, Infectious disease consulted. Pt was treated with IV Dexamethasone, Vitamin C, D, and zinc. She was outside of window for Remdesivir. Provided supplemental oxygen with peak requirement at 5L O2 prior to returning to room air. Pt was discharged with 8 additional days of dexamethasone and counseled on alarm symptoms to return to the ER. I asked that she quarantine at home for an additional 10 days. Pt to f/u with PCP, and [facility] physicians for blindness and MS. Multiple sclerosis Hypertension Glaucoma -Home medications reviewed and reconciled, no changes were made. I spent 37 minutes coordinating this complex discharge. Assessment: Gen: awake, alert HEENT: normocephalic, atraumatic, good hearing acuity, moist mucous membranes Resp: good air exchange, breathing comfortably with no accessory muscle use CVS: good distal perfusion x 4, GI: soft, NTTP, ND : no SPT, no CVAT, san catheter not present MSK: no pitting edema, no clubbing Neuro: non-focal, moving all extremities Psych: cooperative, euthymic mood Patient Condition at Discharge: Good Plan - Discharge Summary New Discharge Prescriptions: New Zinc Sulfate [Orazinc] 220 mg PO DAILY #30 cap Albuterol Inhaler [Ventolin Hfa Inhaler] 2 puff INHALATION RT-Q6H PRN #1 inh PRN Reason: Shortness Of Breath Or Wheezing Ascorbic Acid [Vitamin C] 1,000 mg PO DAILY #30 tab Cholecalciferol [Vitamin D3 (25 Mcg = 1000 Iu)] 100 mcg PO DAILY #30 tablet Continue Latanoprost Ophth [Xalatan 0.005%] 1 drops BOTH EYES HS amLODIPine [Norvasc] 5 mg PO BID Losartan Potassium [Cozaar] 50 mg PO BID Potassium Iodide 32.5mg 32.5 mg PO DAILY Triamterene-Hctz 37.5-25Mg [Dyazide 37.5-25 Capsule] 1 cap PO DAILY Timolol 0.5% Ophth Soln [Timoptic 0.5% Ophth Soln] 1 drop BOTH EYES BID Aspirin EC [Ecotrin Low Dose] 81 mg PO DAILY Nystatin 100,000Unit/gm Cream [Mycostatin Cream] 1 applic TOPICAL BID modafiniL [Provigil] 200 mg PO DAILY Meclizine [Antivert] 12.5 mg PO AC-TID PRN PRN Reason: Vertigo Loratadine/Pseudoephedrine [Loratadine-D 24Hr Tablet] 1 tab PO DAILY PRN PRN Reason: Congestion [place]-3 Fatty Acids [[place]-3] 1,000 mg PO DAILY Dexamethasone 6 mg PO DAILY #8 tab Vitamin B Complex 1 cap PO DAILY Cholecalciferol [Vitamin D3 (25 Mcg = 1000 Iu)] 75 mcg PO DAILY Mometasone Furoate [Elocon] 1 applic TOPICAL BID Loratadine 10 mg PO DAILY Dalfampridine [Dalfampridine ER] 10 mg PO Q12H Discharge Medication List Latanoprost Ophth [Xalatan 0.005%] 1 drops BOTH EYES HS 01/06/16 [History] Losartan Potassium [Cozaar] 50 mg PO BID 01/06/16 [History] amLODIPine [Norvasc] 5 mg PO BID 01/06/16 [History] Aspirin EC [Ecotrin Low Dose] 81 mg PO DAILY 05/30/21 [History] Cholecalciferol [Vitamin D3 (25 Mcg = 1000 Iu)] 75 mcg PO DAILY 05/30/21 [History] Dalfampridine [Dalfampridine ER] 10 mg PO Q12H 05/30/21 [History] Loratadine 10 mg PO DAILY 05/30/21 [History] Loratadine/Pseudoephedrine [Loratadine-D 24Hr Tablet] 1 tab PO DAILY PRN 05/30/21 [History] Meclizine [Antivert] 12.5 mg PO AC-TID PRN 05/30/21 [History] Mometasone Furoate [Elocon] 1 applic TOPICAL BID 05/30/21 [History] Nystatin 100,000Unit/gm Cream [Mycostatin Cream] 1 applic TOPICAL BID 05/30/21 [History] [place]-3 Fatty Acids [[place]-3] 1,000 mg PO DAILY 05/30/21 [History] Potassium Iodide 32.5mg 32.5 mg PO DAILY 05/30/21 [History] Timolol 0.5% Ophth Soln [Timoptic 0.5% Ophth Soln] 1 drop BOTH EYES BID 05/30/21 [History] Triamterene-Hctz 37.5-25Mg [Dyazide 37.5-25 Capsule] 1 cap PO DAILY 05/30/21 [History] Vitamin B Complex 1 cap PO DAILY 05/30/21 [History] modafiniL [Provigil] 200 mg PO DAILY 05/30/21 [History] Albuterol Inhaler [Ventolin Hfa Inhaler] 2 puff INHALATION RT-Q6H PRN #1 inh 06/02/21 [Rx] Ascorbic Acid [Vitamin C] 1,000 mg PO DAILY #30 tab 06/02/21 [Rx] Cholecalciferol [Vitamin D3 (25 Mcg = 1000 Iu)] 100 mcg PO DAILY #30 tablet 06/02/21 [Rx] Dexamethasone 6 mg PO DAILY #8 tab 06/02/21 [Rx] Zinc Sulfate [Orazinc] 220 mg PO DAILY #30 cap 06/02/21 [Rx] Follow up Appointment(s)/Referral(s): Wang Taylor DO [Doctor of Osteopathic Medicine] - 4 Weeks (Office closed at time of discharge. Please call Friday morning to schedule an appt.) Junior Vazquez MD [Primary Care Provider] - 1-2 days (Office closed at time of discharge. Please call the office Friday morning to schedule an appt.) Patient Instructions/Handouts: Coronavirus Disease 2019 (COVID-19) Activity/Diet/Wound Care/Special Instructions: [facility]- [phone] Discharge Disposition: HOME SELF-CARE
[2021-06-02] MEDS: [UNRECOGNIZED DRUG - REMARK] PO SCH (13:09)
--- NOTE | 2021-06-02 15:23 | PN ---
PROGRESS NOTE DATE OF SERVICE: 06/02/2021 REASON FOR FOLLOWUP: COVID-19 pneumonia. INTERVAL HISTORY: Patient is afebrile. Patient is breathing comfortably. Currently on room air 94%. Denies having any chest pain. No worsening cough or sputum production. No abdominal pain. No diarrhea. PHYSICAL EXAMINATION: Blood pressure 101/69, pulse of 69, temperature 98.1. She is 94% on room air. General description is an elderly female up in the chair in no distress. Respiratory system: Unlabored breathing, decreased intensity of breath sounds. No wheeze. Heart S1, S2. Regular rate and rhythm. Abdomen soft, no tenderness. LABS: No new labs have been obtained today. DIAGNOSTIC IMPRESSION/PLAN: Patient with acute COVID-19 pneumonia, overall improvement on symptomatic treatment and supportive treatment to finish therapy with a course of zinc, ascorbic acid, and close outpatient followup. Continue supportive care. MMODL / IJN: [id number] /
--- NOTE | 2021-06-02 16:40 | P.PN ---
Subjective Progress Note Date: 06/02/21 Principal diagnosis: Dyspnea On 06/02/2001 patient is seen in follow-up on medical surgical floor. She states her breathing continues to improve, she is on room air her prophylaxis at 93-94%, afebrile, hemodynamically she is stable, this had no acute events overnight, only occasional cough, patient remains on Decadron, Lovenox, and COVID-19 vitamins, she is status post partially completed Pfizer vaccination. Patient was outside the window for Remdesivir due to the length of her symptoms. However clinically she has remained stable, responded well to treatments, and she is being discharged home today in stable condition Objective - Vital Signs Vital signs: Vital Signs Temp 98.1 F 06/02/21 10:00 Pulse 69 06/02/21 10:00 Resp 16 06/02/21 10:47 BP 101/69 06/02/21 10:00 Pulse Ox 94 L 06/02/21 10:47 Intake & Output 06/01/21 06/02/21 06/02/21 18:59 06:59 18:59 Other: Voiding Method Toilet Toilet Toilet # Voids 4 2 1 - Exam GENERAL EXAM: Alert, very pleasant, 66-year-old white female, on room air, with a pulse ox of 93-94%, comfortable in no apparent distress. HEAD: Normocephalic/atraumatic. EYES: Normal reaction of pupils, equal size. Conjunctiva pink, sclera white. NOSE: Clear with pink turbinates. THROAT: No erythema or exudates. NECK: No masses, no JVD, no thyroid enlargement, no adenopathy. CHEST: No chest wall deformity. Symmetrical expansion. LUNGS: Equal air entry with very minimal bibasilar crackles CVS: Regular rate and rhythm, normal S1 and S2, no gallops, no murmurs, no rubs ABDOMEN: Soft, nontender. No hepatosplenomegaly, normal bowel sounds, no guarding or rigidity. EXTREMITIES: No clubbing, no edema, no cyanosis, 2+ pulses and upper and lower extremities. MUSCULOSKELETAL: Muscle strength and tone normal. SPINE: No scoliosis or deformity SKIN: No rashes CENTRAL NERVOUS SYSTEM: Alert and oriented -3. No focal deficits, tone is normal in all 4 extremities. PSYCHIATRIC: Alert and oriented -3. Appropriate affect. Intact judgment and insight. - Labs CBC & Chem 7: 05/30/21 17:33 05/30/21 17:33 Labs: Microbiology - Last 24 Hours (Table) 05/30/21 17:48 Blood Culture - Preliminary Blood No Growth after 48 hours 05/30/21 17:48 Blood Culture - Preliminary Blood No Growth after 48 hours Assessment and Plan Plan: Assessment: #1. Acute hypoxic respiratory failure, secondary to acute COVID-19 pneumonia. Patient is status post 1 Pfizer shot, and patient has developed ALLERGIC reaction and did not receive the second dose. Patient was outside the window for Remdesivir. She was treated supportively with steroids in the form of Decadron, prophylactic Lovenox, and COVID-19 vitamins #2. Elevated inflammatory markers related to the above #3. Multiple sclerosis #4. Hypertension #5. Obstructive sleep apnea on CPAP #6. Morbid obesity Plan: Patient is doing well Patient is maintaining stable O2 saturation above 90% on room air Tolerating ambulation She was treated supportively with Decadron, prophylactic anticoagulation and COVID-19 vitamins She is being discharged home today She can complete a total of 10 day course of Decadron 6 mg daily She can continue in the COVID-19 vitamins including vitamin C, vitamin D and zinc Outpatient follow-up with Dr. Taylor in the office in 2 weeks I performed a history & physical examination of the patient and discussed their management with my nurse practitioner, Linda Jose. I reviewed the nurse practitioner's note and agree with the documented findings and plan of care. Lung sounds are positive for minimal crackles at the bases throughout the lung perez. The findings and the impression was discussed with the patient. I attest to the documentation by the nurse practitioner. Time with Patient: Less than 30
== END 2021-06-02 13:46 | disposition home or self-care (01) | DRG 177 ==
LOC: EC 15:29 → 4SSUR 20:57
PROVIDERS: ADMIT Internal Medicine; ATTEND Internal Medicine
PROC: 5A09457 Assistance with Respiratory Ventilation, 24-96 Consecutive Hours, Continuous Positive Airway Pressure (ICD-10-PCS; principal; 2021-05-30)
DX: U07.1 COVID-19 (principal); J12.82 Pneumonia due to coronavirus disease 2019; J96.01 Acute respiratory failure with hypoxia; E87.1 Hypo-osmolality and hyponatremia; H54.8 Legal blindness, as defined in USA; I10 Essential (primary) hypertension; R79.89 Other specified abnormal findings of blood chemistry; R74.8 Abnormal levels of other serum enzymes; G35 Multiple sclerosis; G47.33 Obstructive sleep apnea (adult) (pediatric); Z90.710 Acquired absence of both cervix and uterus; Z87.892 Personal history of anaphylaxis; Z79.899 Other long term (current) drug therapy; Z79.82 Long term (current) use of aspirin; E66.01 Morbid (severe) obesity due to excess calories; E04.9 Nontoxic goiter, unspecified
CPT/HCPCS: 36415; 71045; 71275; 80053; 82728; 83605; 83615; 83735; 84145; 84484; 85025; 85379; 85610; 85730; 86140; 87040; 87635; 93005; 94640; 99285

== ENCOUNTER → 2021-06-27 | Outpatient (CLI) | payer MEDICARE ==
--- NOTE | 2021-06-27 17:31 | US ---
EXAMINATION TYPE: US venous doppler duplex LE BI DATE OF EXAM: 06/27/2021 4:50 PM COMPARISON: NONE CLINICAL HISTORY: R60.0 LOCALIZED EDEMA. Edema left leg SIDE PERFORMED: bilateral TECHNIQUE: The lower extremity deep venous system is examined utilizing real time linear array sonog carlotta with graded compression, doppler sonography and color-flow sonography. VESSELS IMAGED: Common Femoral Vein Deep Femoral Vein Greater Saphenous Vein * Femoral Vein Popliteal Vein Small Saphenous Vein * Proximal Calf Veins (* superficial vessels) Right Leg: no evidence of DVT. Rouleaux flow popliteal vein Left Leg: no evidence of DVT. Rouleaux flow popliteal vein IMPRESSION: No evidence of deep vein thrombosis in both legs.
== END | disposition home or self-care (01) ==
LOC: RADUSWWP 15:54
PROVIDERS: ATTEND Family Medicine
DX: R60.0 Localized edema (principal)
CPT/HCPCS: 93970

== ENCOUNTER → 2022-03-07 | Outpatient (CLI) | payer MEDICARE ==
--- NOTE | 2022-03-07 15:44 | US ---
EXAMINATION TYPE: US thyroid st tissue head/neck DATE OF EXAM: 03/07/2022 COMPARISON: NONE CLINICAL HISTORY: R59.0 LOCALIZED ENLARGED LYMPH NODES. GLAND SIZE: Right Lobe: 7.4 x 3.3 x 2.6 cm Overall Parenchyma: heterogenous Left Lobe: 6.5 x 3.1 x 3.0 cm Overall Parenchyma: heterogeneous Isthmus Thickness: 0.8 cm NODULES RIGHT: # of nodules measured on right: 2 1. 2.7 x 1.9 x 2.5 cm, upper , solid or almost completely solid, hypoechoic nodule, which is wider than tall, with smooth margins, without echogenic foci. TR 4 lesion No prior 2. 4.6 x 3.7 x 2.9 cm, lower, solid or almost completely solid, isoechoic nodule, which is wider th an tall, with smooth margins, without echogenic foci. TR 3 lesion No prior LEFT: # of nodules measured on left: 2 1. 2.0 X 1.3 x 1.9 cm, lower, solid or almost completely solid, hypoechoic nodule, which is wider t dias tall, with smooth margins, without echogenic foci. TR 4 lesion No prior 2. 1.7 x 1.4 x 1.2 cm, lower, solid or almost completely solid, hypoechoic nodule, which is wider than tall, with smooth margins, without echogenic foci. TR 4lesion No prior ISTHMUS: # of nodules measured in the isthmus: 0 Bilateral neck scanned, no evidence of lymphadenopathy. Heterogeneous enlarged thyroid with bilateral nodules as noted above. IMPRESSION: As above. Advise sampling of all 4 nodules noted above. 2017 ACR TI-RADS LEVEL: TR-RADS 4 - Moderately Suspicious: Follow if > 1 cm, FNA if > 1.5 cm *Highest TI-RADS level nodule reported
== END | disposition home or self-care (01) ==
LOC: RADUSWWP 14:44
PROVIDERS: ATTEND Family Medicine
DX: R59.0 Localized enlarged lymph nodes (principal)
CPT/HCPCS: 76536